=== PATIENT | female | born 1955 | race Caucasian/White ===

== ENCOUNTER → 2016-03-30 | Outpatient (CLI) | payer OTHER ==
[~2016-03-30] MED LIST: THROMBIN (RECOMBINANT) 5,000 UNIT VIAL TP ONE
--- NOTE | 2016-03-30 10:53 | MA ---
Diagnostic Digital Mammogram Left Breast Reason for examination: Follow up 2 site sonographically guided left breast biopsy. Technique: Craniocaudal and true lateral views were obtained. Findings: The barrel-shaped Suros marker is deployed at biopsy site 1 in the more medial left breast. The top hat shaped Suros markers deployed at biopsy site 2 more laterally and superiorly in the ante rior left breast. Impression: Suros markers are deployed at the 2 left breast biopsy sites. We will await pathologic results.
--- NOTE | 2016-03-30 18:26 | US ---
Vacuum-assisted two-site ultrasound-guided core biopsy of the left breast Reason for examination: Evaluate 2 solid nodules in the subareolar left breast at the 6 o'clock posit ion 1 and 2 cm from the nipple. Crosscutting Measure #226: Current tobacco user: No. Technique: Informed consent was obtained. Following sterile preparation and local anesthesia and util izing vacuum assistance and sonographic the hypoechoic lesion slightly more inferiorly and 2 cm from the nipple was targeted. A 9-gauge Suros needle was advanced into the lesion. Multiple large core bio psies were obtained. The biopsy was performed with continuous real time sonographic monitoring. A bar rel-shaped Suros marker was deployed to dav the biopsy site. The needle was removed and hemostasis was obtained with manual compression. Subsequently, the second lesion, which is slightly more superior at the 6 o'clock position was target ed. A 12-gauge Suros needle was advanced into the lesion. Multiple core biopsies were obtained. The b iopsy was performed with continuous real time sonographic monitoring. A top hat shaped Suros marker w as deployed to dav the biopsy site. The final positioning of the marker at the second site is slight ly lateral to the biopsy site by approximately 1 cm. The patient tolerated the procedure well and no immediate complications occurred. A post biopsy mammo gram will be obtained to evaluate marker deployment. Discharge instructions were given by the Radiol ogy nurse. Impression: 1. Successful sonographically-guided two-site large core left breast biopsy. 2. The top hat shaped Suros marker deployed at the second biopsy site is approximately 1 cm lateral t o the biopsied lesion. If preoperative needle localization is indicated in the future, sonographic gu idance could be considered. Material was sent to Pathology. We will await results.
== END ==
LOC: FIMAGING 08:35
PROVIDERS: ATTEND Physician Assistant
PROC: 0HBU3ZX Excision of Left Breast, Percutaneous Approach, Diagnostic (ICD-10-PCS; principal; 2016-03-30)
DX: C50.912 Malignant neoplasm of unspecified site of left female breast (principal)
CPT/HCPCS: G0206

== ENCOUNTER → 2016-04-19 | Outpatient (CLI) | payer OTHER ==
[~2016-04-19] MED LIST changes: +GADOBUTROL 10 ML VIAL IVP ONE; -THROMBIN (RECOMBINANT) 5,000 UNIT VIAL TP ONE
--- NOTE | 2016-04-19 14:21 | MR ---
MRI breasts bilateral without and with contrast History: Ultrasound-guided biopsy of 2 separate sites left breast showing invasive ductal carcinoma w ith lobular features. Comparison: Mammography and ultrasound from March 30, 2016 and March 11, 2016. Technique: Precontrast sagittal fat-saturated T2-weighted and Vibrant images of both breasts were ob tained. Subsequently, during intravenous administration of 8 mL Gadavist, multiphasic sagittally acq uired Vibrant MR images through both breasts were obtained. In addition, high resolution axial image s were obtained in the axial plane pre and post contrast. Data was sent to [facility] for additional an alysis including 3D reconstruction, computer-aided detection (CAD), and color-coded phase contrast en hancement evaluation. Findings: Left breast: Multiple areas of nodular enhancement are seen in the left breast with the majority of p ersistent enhancement kinetics. Areas of more predominant nodular enhancement correspond to the biops y marker in the 6 o'clock position 4 cm from the nipple and the other biopsy marker is seen 2 cm from the nipple in the 5 o'clock position. Other areas of nodular enhancement in the left breast have a s imilar appearance. Two that are larger are seen measuring 11 mm, 2 cm deep to the nipple in the centr al breast and one slightly more medial in the central breast measuring 13 mm. A 2-cm hematoma is seen between the 2 biopsy markers. There is increased signal intensity on the precontrast imaging on geovanny ral ducts retroareolar, indicating hemorrhage or proteinaceous debris. Probable tortuous vein versus less likely a 7-mm internal mammary lymph node is visualized. No significant axillary lymphadenopathy . Right breast: There is mild underlying fibrocystic enhancement in the right breast. Complex cyst valeria uring 1 cm is seen in the lower outer quadrant and a couple of other smaller complex cysts scattered throughout the right breast. No suspicious internal mammary or axillary lymph nodes. Impression: 1. Multiple areas of nodular enhancement in the left breast. 2 separate biopsy sites are seen correla ting to the known invasive ductal carcinoma with lobular features. 2 other more dominant 11 and 13 mm nodules are also seen and other smaller ones scattered in the left breast suggesting multicentric di sease. Probable tortuous vein versus less likely a small intramammary lymph node. 2. No evidence for contralateral breast carcinoma right breast. BI-RADS 6
== END ==
LOC: FIMAGING 11:48
PROVIDERS: ATTEND Surgery
DX: C50.912 Malignant neoplasm of unspecified site of left female breast (principal)
CPT/HCPCS: 0159T; 77059; A9585; C8908

== ENCOUNTER → 2016-04-20 | Outpatient (CLI) | payer OTHER ==
--- NOTE | 2016-04-20 15:28 | DX ---
Chest, PA and Lateral History: Left breast cancer, history of melanoma Comparison: None Findings: Lungs are clear, without infiltrate ,consolidation or pulmonary nodule. Heart size is mildl y enlarged with retained normal pulmonary vascularity. There is no adenopathy or mass lesion. There i s no interstitial lung disease or pleural effusion. Bones are unremarkable for age. There are a left chest wall surgical clips. Impression: No evidence for metastatic breast carcinoma or melanoma.
== END ==
LOC: FIMAGING 13:47
PROVIDERS: ATTEND Surgery
DX: Z03.89 Encounter for observation for other suspected diseases and conditions ruled out (principal); C50.912 Malignant neoplasm of unspecified site of left female breast; Z85.820 Personal history of malignant melanoma of skin

== ENCOUNTER 2016-04-30 11:03 | Observation (INO) | payer OTHER ==
[~2016-04-30 11:03] MED LIST changes: -GADOBUTROL 10 ML VIAL IVP ONE; +SKIN ADHESIVE (DERMABOND) 1 EACH TP ONE
[2016-04-30] MEDS ORDERED: fentaNYL 250 MCG/5 ML INJ ONE (14:02)
[2016-04-30] MEDS ORDERED: PROPOFOL/EMULSION 500 MG/50 ML BOTTLE IV ONE ×2 (14:02→14:55)
[2016-04-30] MEDS ORDERED: MIDAZOLAM 2 MG/2 ML VIAL ONE (14:05)
--- NOTE | 2016-04-30 14:13 | NM ---
Nuclear Medicine Left Breast Preoperative Lymphoscintigraphy Clinical History: 61-year-old female anticipating a left mastectomy, presenting preoperatively for se ntinel lymph node localization. She has a history of invasive ductal carcinoma with lobular features. Technique: The procedure was discussed with the patient who wished to proceed. The periareolar aspect of the left breast was chloroprepped and draped, and a cold anesthetic spray was applied to the 6 o' clock position of the left breast. A subdermal injection in the 6 o'clock periareolar aspect, as well as a retroareolar injection directed from 6-12 o'clock were administered. 324 uCi of surface injecti on and 22 uCi of deep injection of technetium 99m Lymphoseek were delivered. Postprocedural imaging r evealed radiotracer accumulation in the left breast with "star artifact" and some faint activity over the left axilla. The patient will be subsequently sent to the OR for surgery with Dr. Akhil Florentino. Impression: Preoperative left breast lymphoscintigraphy for sentinel node localization.
[2016-04-30] MEDS ORDERED: BUPIVACAINE/EPI 0.25% 30 ML SDV ONE (14:33)
[2016-04-30] MEDS ORDERED: KETOROLAC 30 MG/1 ML SDV ONE (14:46)
[2016-04-30] MEDS ORDERED: ONDANSETRON 4 MG/2 ML VIAL ONE (14:46)
[2016-04-30] MEDS ORDERED: DEXAMETHASONE 4 MG/ML VIAL ONE (14:46)
--- NOTE | 2016-04-30 15:58 | POSTOPPROG ---
Post Op Note Date of Operation: 04/30/16 Surgeon: Tanisha Vásquez Manager Endoscopy: Tanisha Vásquez PA-C Anesthesia: GET(General Endotracheal) Pre-op Diagnosis: Left breast cancer Post-op Diagnosis: Left breast cancer Procedure: Left simple mastectomy with attempted axillary SLNB Findings: No axillary tracer uptake Inf/Abcess present in the surg proc area at time of surgery?: No Depth: Deep Incisional (Fascial) EBL: Minimal Complications: None Drains: Barber [place] Specimen(s): Left breast tissue/ axillary contents
[2016-04-30] MEDS ORDERED: fentaNYL 100 MCG/2 ML INJ ONE (16:01)
[2016-04-30] MEDS ORDERED: HYDROmorphONE/DILAUDID 1 MG/ML SYR IVP PRN (16:14)
[2016-04-30] MEDS ORDERED: HYDROCODONE/APAP 5/325 TAB PO PRN (16:14)
[2016-04-30] MEDS ORDERED: ONDANSETRON 4 MG/2 ML VIAL IVP PRN (16:21)
[2016-04-30] MEDS ORDERED: ZOLPIDEM TARTRATE 5 MG TAB PO PRN (16:21)
[2016-04-30] MEDS ORDERED: ACETAMINOPHEN 325 MG TAB PO PRN (16:21)
[2016-04-30] MEDS ORDERED: MELATONIN 3 MG TAB PO PRN (16:23)
[2016-04-30 17:57] VITALS: RESP 16
[2016-04-30] MEDS ORDERED: MONTELUKAST SODIUM 10 MG TAB PO SCH (18:00)
--- NOTE | 2016-04-30 20:59 | GOP ---
[f rep st] OPERATIVE REPORT DATE OF OPERATION: 04/30/2016 SURGEON: Akhil Florentino MD ANESTHESIA: General, Dr. Ruiz. PREOPERATIVE DIAGNOSIS: Multicentric left breast carcinoma. POSTOPERATIVE DIAGNOSIS: Multicentric left breast carcinoma. PROCEDURE PERFORMED: Left simple mastectomy with attempted axillary sentinel node sampling. FINDINGS: Non-visualization of left axillary lymph node. INDICATIONS: 61-year-old female with a recently diagnosed multicentric left breast carcinoma. She is undergoing a left simple mastectomy without reconstruction at this time. Risks and benefits of the procedure were explained to the patient including bleeding, infection, tumor recurrence, need for additional adjuvant therapy, skin flap necrosis as well as others. She has undergone a prior complete axillary lymph node dissection for a left chest wall melanoma. She is aware of the likely inability to identify a sentinel node. All questions were entertained. She desires to proceed. A surgical pathologist is standard and necessary and customary for the safe performance of this procedure. DESCRIPTION OF PROCEDURE: General anesthesia was induced upon returning for lymphoscintigraphy. Faint possible left axillary uptake was noted on preoperative imaging studies. A large elliptical incision was created encompassing the nipple-areolar complex. Using electrocautery, skin flaps were created to the level of the clavicles, superomedially toward the prior full- thickness melanoma excision site with well-healed split-thickness skin graft, medially towards the sternum, inferiorly toward the inframammary fold, and laterally to the latissimus dorsi muscle. The breast was peeled from medial to lateral, incorporating the pectoralis major fascia. Specimen was taken high up into the axillary tail of [facility]. There was no evidence of pectoralis fascia involvement. Central breast uptake was noted to be approximately 5500 units on the gamma counter. There was diffuse activity throughout the lateral aspect of the breast measuring 7130-5282 units without focal area of adenopathy. This was tagged for orientation and sent for permanent processing. Axillary interrogation with the gamma counter showed activity measuring approximately 50- 100 units throughout. There was 1 solitary clump of breast/axillary tissue/old surgical indurated scar that was separate from the breast cavity. This was circumferentially excised and sent labeled as axillary contents. There was no significant radiotracer uptake in the specimen. No palpable adenopathy was present. No further attempts at axillary sampling were undertaken accordingly. Satisfactory hemostasis was assured. The breast was closed in layers over two 10 flat Barber-Fairbanks drains using absorbable sutures followed by Dermabond. The patient was extubated in the operating room and taken to recovery uneventfully. /[id number]/MODL MTDD
[2016-04-30] MEDS: KETOROLAC 15 MG/1 ML SDV IVP SCH (22:37)
[2016-04-30] MEDS: traZODone 50 MG TAB PO SCH (23:06)
[2016-05-01] MEDS: traZODone 50 MG TAB PO SCH (00:05)
[2016-05-01] MEDS: KETOROLAC 15 MG/1 ML SDV IVP SCH ×3 (03:02→11:27)
--- NOTE | 2016-05-01 10:19 | SOAPPROG ---
SOAP Progress Note Assessment/Plan: Assessment:no complaints. min pain. no cp or sob. avss. comfortable. incis clean. flaps pink. brigida thin sang. doing well. home today. Plan: 05/01/16 10:17 Objective: Vital Signs Temp Pulse Resp BP Pulse Ox 36.3 C 71 16 117/70 93 05/01/16 05:00 05/01/16 05:00 05/01/16 05:00 05/01/16 05:00 05/01/16 05:00 04/30/16 05/01/16 05/02/16 05:59 05:59 05:59 Intake Total 2405 Output Total 693 45 Balance 1712 -45 ICD10 Worksheet Patient Problems: Problems Problem Status Diagnosed Breast cancer Acute - ICD10 Problem Qualifiers (1) Breast cancer
[2016-05-01 10:56] VITALS: BP 104/50; PULSE 108; TEMP 98.1; O2SAT 99
== END 2016-05-01 12:00 | disposition home or self-care (01) ==
LOC: F3E 11:03 → FOB 17:13
PROVIDERS: ADMIT Surgery; ATTEND Surgery
PROC: 3E0W3HZ Introduction of Radioactive Substance into Lymphatics, Percutaneous Approach (ICD-10-PCS; 2016-04-30)
PROC: 0HTU0ZZ Resection of Left Breast, Open Approach (ICD-10-PCS; principal; 2016-04-30 13:45)
PROC: 07B60ZZ Excision of Left Axillary Lymphatic, Open Approach (ICD-10-PCS; 2016-04-30 13:45)
DX: C50.912 Malignant neoplasm of unspecified site of left female breast (principal); Z80.3 Family history of malignant neoplasm of breast; Z85.820 Personal history of malignant melanoma of skin; E78.5 Hyperlipidemia, unspecified; J45.909 Unspecified asthma, uncomplicated
CPT/HCPCS: 19302; 78195; A9520; G0378; J1100; J1885; J2250; J2405; J2704; J3010

== ENCOUNTER 2016-07-09 10:06 | Emergency (ER) | payer OTHER ==
[2016-07-09 10:21] VITALS: BP 135/62; RESP 18; TEMP 98
--- NOTE | 2016-07-09 11:12 | EDPHY ---
H & P Time Seen by Provider: 07/09/16 10:46 HPI/ROS: CHIEF COMPLAINT: Facial rash HISTORY OF PRESENT ILLNESS: The patient is a 61-year-old female with a history of melanoma breast cancer on tamoxifen who presents emergency department with a rash on her face. Patient states she woke with the mild sore throat. "I would mention it except for the rash." She has no difficulty swallowing. She noticed mild facial redness. The rash extends only to her neck. It is not pruritic. She denies visual change. No fevers or chills. No nausea or vomiting. No other symptoms. The patient started tamoxifen on 06/30/2016. No other new medications. No exposure to new detergents or substances. REVIEW OF SYSTEMS: My complete review of systems is negative except as mentioned in the HPI. Past Medical/Surgical History: Includes melanoma, breast cancer Past surgical history: Includes mastectomy, melanoma surgery x2 Social history: The patient does not smoke. She is . Smoking Status: Unknown if ever smoked Physical Exam: Vitals noted GENERAL: Well-appearing, in no acute distress, alert. HEENT: Eyes normal to inspection, normal pharynx, uvula midline. No lesions. No asymmetry. no signs of dehydration. NECK: No thyromegaly, no lymphadenopathy, supple. RESPIRATORY: Clear to auscultation bilaterally, no rales, rhonchi or wheezing. CVS: Regular rate and rhythm, no rubs, murmurs, or gallops. ABDOMEN: Soft, nontender, nondistended, no organomegaly. BACK: Normal to inspection, no CVA tenderness. SKIN: patient has mild redness to her face. This is not raised. There are no petechiae or hives. No noted swelling., warm, dry. No pallor. EXTREMITIES: No pedal edema, no calf tenderness, no Homans sign or cords, no joint swelling. NEURO/PSYCH: Alert and oriented, normal mood and affect, normal motor sensory exam. No obvious cranial nerve deficit. Constitutional: Initial Vital Signs Temperature (C) 36.6 C 07/09/16 10:17 Heart Rate 61 07/09/16 10:17 Respiratory Rate 18 07/09/16 10:17 Blood Pressure 135/62 H 07/09/16 10:17 O2 Sat (%) 97 07/09/16 10:17 O2 Delivery Mode Room Air Allergies/Adverse Reactions: cat dander Allergy (Severe, Verified 04/30/16 17:20) dog dander Allergy (Severe, Verified 04/30/16 17:20) adhesive tape Allergy (Verified 04/29/16 15:31) amoxicillin Allergy (Verified 04/28/16 12:36) Rash Home Medications: Medication Instructions Recorded Aspirin EC [Aspirin EC 81 mg (*)] 81 mg PO DAILY 04/28/16 Calcium Carbonate/Vitamin D3 1 each PO BIDMEAL 04/28/16 [CALCIUM 600 + VIT D TABLET] Herbals/Supplements -Info Only 1 ea PO DAILY 04/28/16 Melatonin [Melatonin 3 MG (*)] 3 mg PO HS PRN 04/28/16 Multivitamins [Multivitamin (*)] 1 each PO DAILY 04/28/16 Niacin [Niacin 500 mg (*)] 500 mg PO BID 04/28/16 [place]-3 Fatty Acids [Fish Oil 1000 1,000 mg PO DAILY 04/28/16 mg (*)] traZODone [traZODONE 50MG (*)] 50 - 100 mg PO HS 04/28/16 Acetaminophen [Tylenol 325mg (*)] 650 mg PO Q4HRS PRN #0 tab 05/01/16 Famotidine [Pepcid 20 MG (*)] 20 mg PO BID #10 tab 07/09/16 Lidocaine 07/09/16 Tamoxifen Citrate 07/09/16 diphenhydrAMINE [Benadryl] 1 - 2 tab PO Q6 #20 tab 07/09/16 predniSONE 20 mg PO DAILY 4 Days 07/09/16 Medical Decision Making ED Course/Re-evaluation: In urgent care I discussed possible etiologies with the patient. She will undergo strep screen. She was given Benadryl 50 mg orally and Pepcid 20 mg orally. I do not feel she needs prednisone at this time. Patient had negative strep screen. I discussed the result with the patient. Of note, the patient did not want her medication until after the negative strep. The medication was given. 1155: Patient is doing well. Her rash is improving. No shortness of breath. Patient will follow up with Dr. Florentino and her primary care physician. She is given warnings prior to leaving. She is given a prescription for Benadryl, Pepcid and prednisone. She will not take the prednisone unless she worsens and checks with Dr. Florentino. My PQRS negative my PQRS negative my PQRS negative my PQRS negative 134: Depression screening and followup, PRIME THOMAS-PHQ2 (12 years and older) Over the last 2 weeks, how often have you been bothered by any of the following problems? 1. Feeling down, depressed, or hopeless? 2. Little interest or pleasure in doing things? Patient answered no to both 1 and 2 130: Documentation of medications. Reviewed all patient medications, doses, route and frequency. 226: Do you smoke? No. Differential Diagnosis: My differential includes but is not limited to allergic reaction, medication reaction, anaphylaxis, malignancy reaction, angioedema, cellulitis, abscess - Data Points Laboratory Results: 07/09/16 07/09/16 Unknown 11:20 Group A Strep Screen NEGATIVE (NEGATIVE) Group A Strep DNA Pending Medications Given: Discontinued Medications Diphenhydramine HCl (Benadryl) 50 mg PO EDNOW ONE Stop: 07/09/16 11:14 Last Admin: 07/09/16 11:21 Dose: 50 mg Famotidine (Pepcid) 20 mg PO EDNOW ONE Stop: 07/09/16 11:14 Last Admin: 07/09/16 11:22 Dose: 20 mg Departure - Departure Disposition: Home, Routine, Self-Care Clinical Impression: Skin rash Condition: Good Instructions: Acute Rash (ED) Additional Instructions: Return with increasing rash, shortness of breath, throat tightness, fever or any other concerns. Discuss your medication with Dr. Florentino. Referrals: Aixa Presley PA [Primary Care Provider] - 1-2 days without fail Esther Florentino MD [Medical Doctor] - As per Instructions Prescriptions: diphenhydrAMINE [Benadryl] 1 - 2 tab PO Q6 #20 tab Famotidine [Pepcid 20 MG (*)] 20 mg PO BID #10 tab predniSONE 20 mg PO DAILY 4 Days
[2016-07-09] MEDS ORDERED: FAMOTIDINE 20 MG TAB PO ONE (11:13)
[2016-07-09] MEDS ORDERED: diphenhydrAMINE 25 MG CAP PO ONE (11:13)
[2016-07-09 12:06] VITALS: PULSE 78; O2SAT 96
== END 2016-07-09 12:04 | disposition home or self-care (01) ==
LOC: CED 10:06
DX: R21 Rash and other nonspecific skin eruption (principal); Z85.820 Personal history of malignant melanoma of skin; Z85.3 Personal history of malignant neoplasm of breast
CPT/HCPCS: 87880-PO; G0463-PO

== ENCOUNTER → 2016-09-28 | Outpatient (CLI) | payer OTHER | LOC: BRMIMAGING 13:53 | PROVIDERS: ATTEND Physician Assistant | DX: M25.861 Other specified joint disorders, right knee (principal); M25.862 Other specified joint disorders, left knee; M25.762 Osteophyte, left knee; M25.761 Osteophyte, right knee | CPT/HCPCS: 73562-PO ==

== ENCOUNTER → 2017-03-02 | Outpatient (CLI) | payer OTHER | LOC: FIMAGING 08:53 | PROVIDERS: ATTEND Surgery | DX: Z12.31 Encounter for screening mammogram for malignant neoplasm of breast (principal); Z85.3 Personal history of malignant neoplasm of breast; Z80.3 Family history of malignant neoplasm of breast; Z90.12 Acquired absence of left breast and nipple | CPT/HCPCS: G0202-52 ==

== ENCOUNTER → 2017-08-16 | Outpatient (CLI) | payer OTHER | LOC: BRMIMAGING 09:19 | PROVIDERS: ATTEND Internal Medicine Hematology & Oncology | DX: Z13.820 Encounter for screening for osteoporosis (principal); M85.89 Other specified disorders of bone density and structure, multiple sites; Z82.62 Family history of osteoporosis; Z85.820 Personal history of malignant melanoma of skin; Z85.3 Personal history of malignant neoplasm of breast; Z78.0 Asymptomatic menopausal state ==

== ENCOUNTER → 2018-03-03 | Outpatient (CLI) | payer OTHER | LOC: FIMAGING 14:16 | PROVIDERS: ATTEND Surgery | DX: Z12.31 Encounter for screening mammogram for malignant neoplasm of breast (principal); Z85.3 Personal history of malignant neoplasm of breast; Z90.12 Acquired absence of left breast and nipple; Z80.3 Family history of malignant neoplasm of breast ==